=== PATIENT | female | born 1950 | race Caucasian/White ===

== ENCOUNTER 2024-10-27 17:36 | Inpatient (IN) | payer MEDICARE, SELFPAY ==
[2024-10-27] VITALS (54 sets, daily range): BP systolic 91–136; BP diastolic 38–75; PULSE 76–105; RESP 9–28; TEMP 36.8–37.7; O2SAT 88–97
--- NOTE | 2024-10-27 17:45 | DI.CT_ITS ---
Exam(s) CT HEAD CERVICAL SPINE WO EXAM: CT HEAD CERVICAL SPINE WO CLINICAL HISTORY: head trauma and neck pain 3 days ago. TECHNIQUE: Imaging Protocol: Axial computed tomography images with coronal and sagittal reformatted images were created and reviewed COMPARISON: No exams were available for comparison FINDINGS: There is artifact in the posterior fossa limiting evaluation of this area. CT Head: Ventricles and Extra axial spaces: Normal in size and morphology for the patient's age. Hemorrhage: None. Cerebral parenchyma: There are areas of decreased attenuation in the white matter consistent with chr onic microvascular ischemic disease. No acute territorial infarct is seen. Midline shift: None. Brainstem/Cerebellum: Normal. Calvarium: Normal. Visualized Paranasal sinuses/Mastoids: Clear. Soft Tissues: Unremarkable. CT Cervical Spine: Bones: No acute fracture or subluxation. Age-appropriate degenerative changes are present. Soft Tissues: Unremarkable. Lung Apices: Clear. IMPRESSION: 1. No acute intracranial process. 2. No acute fracture or subluxation in the cervical spine. 3. The preliminary [facility] report was reviewed. RADIATION DOSE DELIVERED: 1,491.68mGy.cm Total DLP DATA REPOSITORY: All CT scans at this facility are submitted to the National Radiology Data Registry (NRDR) Dose Index Registry (DIR) with the [employer] ([employer]). RADIATION OPTIMIZATION: All CT scans at this facility use at least one of these dose optimization te chniques: automated exposure control; mA and/or kV adjustment per patient size (includes targeted exa ms where dose is matched to clinical indication); or iterative reconstruction.
--- NOTE | 2024-10-27 17:45 | RT.EKG_ITS ---
APPROVED REPORT Exam: Resting ECG Reason for Exam: weakness, dizzy Patient Location: E HR:94 bpm ECG Measurements Heart Rate 94 AXIS PA 159 P 31 QRSd 93 QRS 9 QT 371 T 43 QTc 465 Conclusion Sinus rhythm, rate 94 No interval abnormalities No STEMI No priors available for comparison
--- NOTE | 2024-10-27 17:56 | DI.RAD_ITS ---
Exam(s) XR CHEST 1V IN DI DEPT EXAM: XR CHEST 1V IN DI DEPT CLINICAL HISTORY: SOB, diaphoresis TECHNIQUE: 2D digital imaging was performed of the chest. One image was obtained. An AP view was ob tained. COMPARISON: No exams were available for comparison FINDINGS: MEDIASTINUM: Normal. HEART: Normal. PULMONARY VASCULATURE: Normal. LUNGS: No focal consolidating infiltrates are seen. PLEURAL SPACE: No pleural effusion or pneumothorax. BONE:Within normal limits for the patient's age. OTHER FINDINGS:Normal. IMPRESSION: 1. No focal consolidating infiltrate or pleural effusion. 2. The preliminary [facility] report was reviewed. DATA REPOSITORY: RADIATION DOSE DELIVERED:
--- NOTE | 2024-10-27 18:02 | ED.GENADUL_ITS ---
Discharge Plan Disposition Patient Disposition: Transfer-Acute Inpatient Care Specific Acute Inpt Facility: [facility] Discharge Details Chief Complaint: Nausea/Vomit/Diar Clinical Impression: NSTEMI, initial episode of care Admit Date/Time: 10/27/24 21:33 Admit Provider: Jerson Weathers Attending Provider: Jerson Weathers Primary Care Provider: Unknown,Unknown ED Provider: Sandie Valdez Discharge Data Discharge Date/Time-TO BE ENTERED AT DEPARTURE: 10/27/24 22:23 HPI General Date/Time Provider Initiated Documentation: 10/27/24 17:40 . HPI Narrative: Roxanna is a 74 year old female who presents to the emergency department today for evaluation of not feeling well. She reports that she fell 3 days ago (), landing headfirst as she tumbled down a hill. She has had some neck pain, right sided headache, and feeling of unsteadiness on her feet since then. Denies LOC with fall or extremity injuries. 2 days ago she felt fatigued all day with mild chills. Yesterday around 2:30 PM she had 1/2-hour episode of panicky breathing with nausea/vomiting x 1, and profuse sweating; denies associated chest pain. This resolved spontaneously without intervention. Today she had another episode starting around 4:30 PM with more vomiting, currently is sweating, but says that her panicky breathing improved with relaxation techniques. Denies recorded fevers, vision changes, chest pain, congestion/sore throat/cough, abdominal pain, change in p.o. intake, change in bowel or bladder function, black/tarry stools, new easy bruising/gum bleeding/epistaxis. She has not anticoagulated. Past medical history is significant for HTN, HLD, prediabetes (lasst A1C 6.1 per ). Denies history of smoking, cardiac disease, bleeding disorders, CVA, or SD. Physical exam remarkable for uncomfortable appearing diaphoretic patient who is alert and oriented, appropriately answering questions. She has ecchymosis around her left eye and left side of forehead. No Gregory sign. No C-spine step-off/sinus/deformity. Easy work of breathing, lung sounds clear bilaterally. Normal heart sounds. Abdomen soft, nondistended, nontender to palpation. Large ecchymosis noted on left bailon attributed to recent fall. No pedal edema. Moving all extremities equally, radial pulses equal bilaterally. D/dx includes but is not limited to: Intracranial hemorrhage, other head injury/concussion, ACS, viral illness such as COVID-19 or flu, gastritis, pancreatitis, electrolyte imbalance, severe anemia I independently interpreted the following tests: EKG performed, normal sinus rhythm, rate 94, normal intervals. No changes consistent with acute ischemia. Serial Troponins elevated, 158-> 185 -> 206. CBC, CMP, lipase all reassuring. COVID/flu negative. No obvious infiltrate noted on chest x-ray CT head/C-spine performed, heparin administered after head CT determined to have no evidence of intracranial hemorrhage. This was confirmed by radiologist; no acute findings noted. C-collar was removed after negative C-spine CT; patient denies neck pain, extremity weakness; has full painless range of motion of neck. History and presentation consistent with NSTEMI and mild concussion secondary to head trauma While in the emergency department, Roxanna received 324 mg aspirin and heparin initiated for NSTEMI. 2 mg morphine given for headache; patient reports full improvement of symptoms after receiving morphine. Patient did have some dipping down and O2 sat while laying flat (88-90% on RA), this improved with 0.5 L O2 via NC with O2 sat in mid 90s-after patient sat up she no longer required supplemental oxygen. Discussed case with Dr. Ruffin, [facility] sugar drier. Recommends repeat troponin and EKG at 6 hours. As patient does not actively have chest pain, hold off on Plavix for now. Patient accepted for transfer to [facility] under the care of Dr Villareal, sugar drier; [facility] floor. As patient will be held overnight, discussed case with Dr. Weathers, hospitalist. She will be observed overnight in ICU pending transfer. Related Data Home Medications ?Medication ?Instructions ?Recorded ?Confirmed Centrum Tablet 1 tab PO DAILY 10/10/12 calcium ER 600 mg (as carb,cit)-D3 1 tab PO DAILY 10/10/12 12.5 mcg (500 unit) tablet, ext.rel hydroxychloroquine 200 mg tablet 1 tab PO BID #180 tab-caps 10/10/12 (Plaquenil) omega-3 fatty acids-fish oil 300 1 cap PO DAILY 10/10/12 mg-1,000 mg capsule ranitidine HCl 75 mg tablet 1 tab PO DAILY 10/10/12 (Zantac) triamcinolone acetonide 0.5 % 1 dara topical DAILY PRN ##3 10/10/12 topical cream atenolol 25 mg tablet 1 tab PO DAILY #90 tab-caps 09/02/13 escitalopram oxalate 10 mg tablet 1 tab PO DAILY #90 tab-caps 09/02/13 (Lexapro) hydrochlorothiazide 12.5 mg tablet 1 tab PO DAILY #90 tab-caps 09/02/13 tolterodine 4 mg capsule,extended 1 cap PO DAILY #90 tab-caps 12/18/13 release 24 hr (Detrol LA) Allergies Allergy/AdvReac Type Severity Reaction Status Date / Time codeine Allergy Intermediate NAUSEA Unverified 11/25/13 13:52 aspirin AdvReac Mild BRUISE Unverified 11/25/13 13:52 EASILY General Stated Complaint: Nausea/Vomit/Diar BASSAM: 3 Review of Systems Narrative: See HPI Exam Const General: cooperative and diaphoretic Nutritional Appearance: overweight Orientation: alert and oriented x3 HENMT Head: no Gregory's sign, no hematomas, no raccoon eyes and periorbital ecchymosis (L eye) Ears: hearing grossly normal bilaterally General nose exam: external nose normal Face and sinus: ecchymosis on the left forehead Mouth: oral mucosae normal Throat: posterior oropharynx normal Neck Neck: normal visual inspection and full ROM Resp Effort & Inspection: normal respiratory effort and able to speak in complete sentences Auscultation: clear to auscultation bilaterally Cardio Jugular venous pressure: no JVD Rate: regular rate Rhythm: regular rhythm Pulses: radial pulses present GI Inspection: normal to inspection and non-distended Palpation: soft, not firm, no guarding, not rigid and nontender Back/Spine/Pelvis Cervical Spine: normal cervical lordosis, cervical ROM normal and collar present (upon arrival, cleared after CT and re-evaluation) Thoracic/Lumbar Spine: thoracic and lumbar spine normal to inspection Skin General skin exam: no rashes or lesions noted Neuro General: patient alert, patient oriented x3, tone normal, moves all extremities and no focal motor deficits Course Vital Signs Vital signs: Vital Signs Temperature 37.7 C H 10/27/24 17:41 Pulse 100 H 10/27/24 17:41 Respiratory Rate 18 05/11/25 17:41 Blood Pressure 124/75 10/27/24 17:41 Pulse Oximetry 93 10/27/24 17:41 Temperature 37.7 C H 10/27/24 17:41 Temperature Source Oral 10/27/24 17:41 Pulse 100 H 10/27/24 17:41 Respiratory Rate 18 10/27/24 17:41 Blood Pressure 124/75 10/27/24 17:41 Pulse Oximetry 93 10/27/24 17:41 Medical Decision Making Imaging Data Radiologic Study: Radiologist's impression: PROCEDURE INFORMATION: Exam: XR Chest Exam date and time: 10/27/2024 6:33 PM Age: 74 years old Clinical indication: Shortness of breath; Diaphoresis, SOB TECHNIQUE: Imaging protocol: Radiologic exam of the chest. Views: 1 view. COMPARISON: CT HEAD CERVICAL SPINE WO 10/27/2024 6:19 PM FINDINGS: Limitations: Patient positioning is lordotic. Lungs: No pulmonary consolidation is seen. There is mild hazy indistinctness of the pulmonary vascular margins. Pleural spaces: No pleural effusion or pneumothorax is demonstrated. Heart/Mediastinum: The heart is normal in size. There is atherosclerotic calcification at the apex of the aortic arch. Bones/joints: There is prominent degenerative change of the shoulder joints bilaterally. IMPRESSION: 1. Mild hazy indistinctness of the pulmonary vascular margins. Although possibly artifactual, this appearance can be seen with interstitial pulmonary edema. Clinical correlation is recommended. 2. No focal pulmonary consolidation or pleural effusion demonstrated. Radiologic Study #2: Radiologist's impression: PROCEDURE INFORMATION: Exam: CT Head Without Contrast Exam date and time: 10/27/2024 6:19 PM Age: 74 years old Clinical indication: Injury or trauma; Blunt trauma (contusions or hematomas); Consciousness not specified; Injury date: 10/25/24; Injury details: Fall, three days ago, head and neck pain TECHNIQUE: Imaging protocol: Computed tomography of the head without contrast. Radiation optimization: All CT scans at this facility use at least one of these dose optimization techniques: automated exposure control; mA and/or kV adjustment per patient size (includes targeted exams where dose is matched to clinical indication); or iterative reconstruction. COMPARISON: No relevant prior studies available. FINDINGS: Brain: Cerebral sulci show bilateral symmetry with no supratentorial mass or mass effect detected. Brainstem and cerebellum are unremarkable. There is no evidence of acute transcortical infarction or recent intracranial hemorrhage. Cerebral ventricles: Ventricular and cisternal spaces are normal in size and configuration and there is no midline shift or hydrocephalus seen. Paranasal sinuses: Grossly clear throughout. Mastoid air c ells: Grossly clear bilaterally. Bones: Bony calvarium and skull base are intact and no acute fractures are detected. Soft tissues: Unremarkable. IMPRESSION: No evidence of acute transcortical infarction, recent intracranial hemorrhage or hydrocephalus. No acute intracranial process is detected. PROCEDURE INFORMATION: Exam: CT Cervical Spine Without Contrast Exam date and time: 10/27/2024 6:19 PM Age: 74 years old Clinical indication: Injury or trauma; Blunt trauma (contusions or hematomas); Consciousness not specified; Injury date: 10/25/24; Injury details: Fall, three days ago, head and neck pain TECHNIQUE: Imaging protocol: Computed tomography of the cervical spine without contrast. Radiation optimization: All CT scans at this facility use at least one of these dose optimization techniques: automated exposure control; mA and/or kV adjustment per patient size (includes targeted exams where dose is matched to clinical indication); or iterative reconstruction. COMPARISON: No relevant prior studies available. FINDINGS: Bones: There is arthrosis involving the anterior atlantodental interval with loss of joint space and marginal osteophyte formation and the odontoid process is grossly intact. There is gross preservation of vertebral body height throughout cervical levels with no vertebral body fractures or significant subluxations detected. Changes of facet arthropathy are most advanced on the right at upper cervical levels with no acute fractures detected involving the posterior elements of the cervical spine. Discs/Spinal canal/Neural foramina: Loss of disc space height with posterior osteocartilaginous ridging is most significant at C5-C6 and C6-C7 resulting in canal narrowing and possible mass-effect upon the ventral cord which could be better evaluated with MRI. Uncovertebral and facet changes produce suspected bilateral foraminal distortions at C5-C6 and C6-C7. Lungs: No pneumothorax or consolidation detected at the lung apices. Soft tissues: Unremarkable. IMPRESS ION: Cervical spondylosis with central canal and foraminal narrowing as above. No acute cervical fractures are detected. Thank you for allowing us to participate in the care of your patient Quality:SDOH Health Related Social Needs: No Data to Display Critical Care Time Critical Care Time Attestation: I have personally spent 30 minutes of critical care time, exclusive of time spent on any procedures, in evaluation and management of this critically ill patient?s condition of NSTEMI. I provided the following critical care treatment: Lab interpretation, frequent reassessments, cardiac monitoring/oxygen saturation monitoring, consult with cardiology [facility] All Active Problems (Updated 10/28/24 @ 00:22 by Sandie Walters) Depression (Chronic) Hyperactivity of bladder (Chronic) HTN (hypertension) (Chronic) NSTEMI, initial episode of care (Acute) Surgical History Abdominal hysterectomy Cholecystectomy Arthroplasty of knee Family History Mother Personal history of malignant neoplasm Father Essential hypertension Sister No problems noted. Brother Essential hypertension Grandfather No problems noted. Grandfather No problems noted. Grandmother Personal history of malignant neoplasm Grandmother No problems noted. Social History Smoking/Tobacco Use Status: Never Smoking risk assessment performed?: Yes Substance use type: does not use Housing: house
[2024-10-27 18:05] LABS: Abs Immature Grans 0.05 10^3/uL (0.0-0.06); Absolute Basophil Count 0.04 10^3/uL (0.0-0.2); Absolute Eosinophil Count 0.06 10^3/uL (0.0-0.7); Absolute Monocyte Count 0.47 10^3/uL (0.1-0.8); Basophils % 0.4 %; Eosinophils % 0.6 %; HCT 32.7 % (36.0-46.0); HGB 10.8 g/dL (11.2-15.7); Immature Grans % 0.5 %; Lymphocytes % 4.7 %; MCH 27.8 pg (27.0-33.0); MCV 84 fL (80-95); MPV 9.4 fL (8.0-11.0); Monocytes % 4.4 %; Neutrophils % 89.4 %; Platelet Count 148 10^3/uL (130-400); RBC 3.88 10^6/uL (3.93-5.22); RDW 13.1 % (11.7-14.6); WBC 10.72 10^3/uL (4.4-10.8)
[2024-10-27 18:18] LABS: Prothrombin Time 10.1 sec (9.1-11.1)
[2024-10-27] MEDS: Ondansetron 4 MG/2 ML VIAL IVP (18:19)
[2024-10-27 18:25] LABS: ALT 61 U/L (14-59); AST 43 U/L (15-37); Albumin 3.6 g/dL (3.4-5.0); Alkaline Phosphatase 117 U/L (46-116); Anion Gap 10.4 mmol/L (3-11); BUN 27 mg/dL (7-18); CO2 21.6 mmol/L (21.0-32.0); CREATININE 1.1 mg/dL (0.55-1.02); Chloride 103 mmol/L (98-107); Estimated GFR 52.08 (mL/min/1.73m2); Glucose 189 mg/dL (74-106); Lipase 34 U/L (<78); Magnesium 1.7 mg/dL (1.8-2.4); Potassium 3.7 mmol/L (3.5-5.1); Sodium 135 mmol/L (136-145); Total Protein 6.9 g/dL (6.4-8.2)
[2024-10-27 18:39] LABS: Troponin I 158 ng/L (<or=51)
--- NOTE | 2024-10-27 18:58 | DI.[facility]_ITS ---
PROCEDURE INFORMATION: Exam: CT Head Without Contrast Exam date and time: 10/27/2024 6:19 PM Age: 74 years old Clinical indication: Injury or trauma; Blunt trauma (contusions or hematomas); Consciousness not specified; Injury date: 10/25/24; Injury details: Fall, three days ago, head and neck pain TECHNIQUE: Imaging protocol: Computed tomography of the head without contrast. Radiation optimization: All CT scans at this facility use at least one of these dose optimization techniques: automated exposure control; mA and/or kV adjustment per patient size (includes targeted exams where dose is matched to clinical indication); or iterative reconstruction. COMPARISON: No relevant prior studies available. FINDINGS: Brain: Cerebral sulci show bilateral symmetry with no supratentorial mass or mass effect detected. Brainstem and cerebellum are unremarkable. There is no evidence of acute transcortical infarction or recent intracranial hemorrhage. Cerebral ventricles: Ventricular and cisternal spaces are normal in size and configuration and there is no midline shift or hydrocephalus seen. Paranasal sinuses: Grossly clear throughout. Mastoid air cells: Grossly clear bilaterally. Bones: Bony calvarium and skull base are intact and no acute fractures are detected. Soft tissues: Unremarkable. IMPRESSION: No evidence of acute transcortical infarction, recent intracranial hemorrhage or hydrocephalus. No acute intracranial process is detected. PROCEDURE INFORMATION: Exam: CT Cervical Spine Without Contrast Exam date and time: 10/27/2024 6:19 PM Age: 74 years old Clinical indication: Injury or trauma; Blunt trauma (contusions or hematomas); Consciousness not specified; Injury date: 10/25/24; Injury details: Fall, three days ago, head and neck pain TECHNIQUE: Imaging protocol: Computed tomography of the cervical spine without contrast. Radiation optimization: All CT scans at this facility use at least one of these dose optimization techniques: automated exposure control; mA and/or kV adjustment per patient size (includes targeted exams where dose is matched to clinical indication); or iterative reconstruction. COMPARISON: No relevant prior studies available. FINDINGS: Bones: There is arthrosis involving the anterior atlantodental interval with loss of joint space and marginal osteophyte formation and the odontoid process is grossly intact. There is gross preservation of vertebral body height throughout cervical levels with no vertebral body fractures or significant subluxations detected. Changes of facet arthropathy are most advanced on the right at upper cervical levels with no acute fractures detected involving the posterior elements of the cervical spine. Discs/Spinal canal/Neural foramina: Loss of disc space height with posterior osteocartilaginous ridging is most significant at C5-C6 and C6-C7 resulting in canal narrowing and possible mass-effect upon the ventral cord which could be better evaluated with MRI. Uncovertebral and facet changes produce suspected bilateral foraminal distortions at C5-C6 and C6-C7. Lungs: No pneumothorax or consolidation detected at the lung apices. Soft tissues: Unremarkable. IMPRESSION: Cervical spondylosis with central canal and foraminal narrowing as above. No acute cervical fractures are detected. Dictated and Authenticated by: Jovany Maxwell MD. Orderin Maryellen Hooper MD
[2024-10-27] MEDS: Heparin in 0.45% NaCl 25,000 UNIT/250 ML BAG 10 UNIT IVINF (19:01)
[2024-10-27] MEDS: Aspirin 81 MG CHEW 324 MG CH (19:01)
[2024-10-27] MEDS: MORPHine 4 MG/ML SYR IVP (19:02)
--- NOTE | 2024-10-27 19:27 | DI.[facility]_ITS ---
PROCEDURE INFORMATION: Exam: XR Chest Exam date and time: 10/27/2024 6:33 PM Age: 74 years old Clinical indication: Shortness of breath; Diaphoresis, SOB TECHNIQUE: Imaging protocol: Radiologic exam of the chest. Views: 1 view. COMPARISON: CT HEAD CERVICAL SPINE WO 10/27/2024 6:19 PM FINDINGS: Limitations: Patient positioning is lordotic. Lungs: No pulmonary consolidation is seen. There is mild hazy indistinctness of the pulmonary vascular margins. Pleural spaces: No pleural effusion or pneumothorax is demonstrated. Heart/Mediastinum: The heart is normal in size. There is atherosclerotic calcification at the apex of the aortic arch. Bones/joints: There is prominent degenerative change of the shoulder joints bilaterally. IMPRESSION: 1. Mild hazy indistinctness of the pulmonary vascular margins. Although possibly artifactual, this appearance can be seen with interstitial pulmonary edema. Clinical correlation is recommended. 2. No focal pulmonary consolidation or pleural effusion demonstrated. Dictated and Authenticated by: Israel Motley MD. Orderin Maryellen Hooper MD
[2024-10-27 19:40] LABS: Troponin I 185 ng/L (<or=51)
--- NOTE | 2024-10-27 21:06 | HPE_ITS ---
Date of service: 10/27/24 Time of Service: 21:06 Assessment and Plan Assessment and plan (1) NSTEMI, initial episode of care: Start date: 10/27/24 Status: Acute Assessment and plan: This is a 74-year-old lady who had a fall 3 days prior to admission with some stuttering symptoms of chills and episodes of headache with nausea and vomiting. The day of presentation she had increased shortness of breath with exertion working around the house. She did have a headache 2 days prior to admission after her fall and some nausea and vomiting episodes intermittently with her headache. She was seen in the ED with imaging of her head which was negative for any acute bleed but she did have a positive troponin which was trending up to the last measurement in the evening. This is being repeated this morning. She was given a full dose aspirin and placed on heparin infusion and [facility] cardiology was consulted with acceptance pending bed for transfer. He has been admitted for non-STEMI with cardiac monitoring and will continue to trend troponins. She is not having chest pain. she is not having shortness of breath at rest. She does wear BiPAP at night. She is a full code. (2) Concussion: Start date: 10/27/24 Status: Acute Assessment and plan: Patient was having headaches and mild concussion symptoms after her fall with negative CT of the head other than cervical arthritis. She does have Plaquenil chronically for PMR but does not have a diagnosis of lupus. Continue monitoring neurological symptoms with patient appearing to clear. She does not have a headache presently. (3) Fever: Start date: 10/28/24 Status: Acute Assessment and plan: Patient had chills for 2 days prior to admission and did have a fever the morning after admission. Blood cultures and urine were obtained and tickborne disease panel was ordered. Antibiotics will be initiated if appropriate. She did have a slightly elevated WBC after a normal WBC and slight elevation of her liver function test and we need to think of tickborne disease. She does work outside. (4) Hypomagnesemia: Start date: 10/27/24 Status: Acute Assessment and plan: Replete and trend labs. (5) PMR (polymyalgia rheumatica): Status: Chronic Assessment and plan: Patient has been on Plaquenil for years which we continued. (6) HTN (hypertension): Status: Chronic Assessment and plan: Monitor and continue outpatient medical regimen adjusting as needed. She does have a low magnesium but normal potassium and on hydrochlorothiazide without potassium supplementation chronically. (7) Hyperactivity of bladder: Status: Chronic Assessment and plan: Continue outpatient medical regimen. (8) Depression: Status: Chronic Assessment and plan: Continue outpatient medical regimen. (9) CARLY (obstructive sleep apnea): Status: Chronic Assessment and plan: Continue home BiPAP settings. History of Present Illness History of Present Illness Chief Complaint: Recent fall, chills and dyspnea with exertion Narrative: This is a 74-year-old female patient who was helping her with a concrete form at their house where they are building an extension over and onto her left side having a bruise over her left head and the eye as well as a bruise over her left knee. This happened 3 days prior to presentation to the ED. She had some chills 2 nights prior to presentation then again the day of presentation with headache and associated nausea and vomiting. The symptoms were intermittent. The day of presentation the patient was having dyspnea with exertion was of left shoulder pain but no chest pain no chest pressure. She denied palpitations. He was having normal bowel movements and she did not measure any fever with her chills. She presents to the ED because of her exertional dyspnea and persistence of symptoms intermittently since her fall. In the ED she was found to have a slightly elevated creatinine from her baseline and she did not receive IV fluids because of concerns of vascular congestion on chest x-ray. She also had slightly increased liver functions with a normal total bilirubin and normal PT/INR. Her EKG had no acute ischemic changes but she did have an elevated troponin which was trending up from 158-185 and then 206 with the last measurement downward at 132. Patient was placed on heparin infusion in the ED after consultation with [facility]. [facility] did accept the patient for transfer with Dr. Augustin ash. She is a full code. Early in the morning after admission the patient did have a fever up to 39.5 and her flu/COVID/RSV had been negative upon admission with a normal WBC upon admission but this slightly elevated with repeat lab in the morning. Blood cultures x 2 were performed and repeat chest x-ray PA and lateral was ordered with patient having slight crackles on her left lung hewitt upon admission. Initial chest x-ray was portable and did not show any infiltrate but possible vascular congestion. This should be followed up with treatment if patient is manifest pulmonary infiltrates at this time and urinalysis should be checked as possible source as well if she is not having symptoms. Patient is chronically on Plaquenil because of the severe case of PMR when she was younger, in her 20s at this has never been stopped. Review of Systems Narrative: 13 point review of systems otherwise unrevealing or stable. 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 She denies any weight gain or edema. She has had no cough, urinary symptoms or other GI symptoms. PFSH All Active Problems (Updated 10/28/24 @ 07:13 by Jerson Weathers) CARLY (obstructive sleep apnea) (Chronic) PMR (polymyalgia rheumatica) (Chronic) Fever (Acute) Hypomagnesemia (Acute) Concussion (Acute) Depression (Chronic) Hyperactivity of bladder (Chronic) HTN (hypertension) (Chronic) NSTEMI, initial episode of care (Acute) Surgical History Abdominal hysterectomy Cholecystectomy Arthroplasty of knee Family History Mother Personal history of malignant neoplasm Father Essential hypertension Sister No problems noted. Brother Essential hypertension Grandfather No problems noted. Grandfather No problems noted. Grandmother Personal history of malignant neoplasm Grandmother No problems noted. Social History Smoking/Tobacco Use Status: Never Smoking risk assessment performed?: Yes Substance use type: does not use Housing: house Meds Allergies and Home Medications Allergies Allergy/AdvReac Type Severity Reaction Status Date / Time codeine Allergy Intermediate NAUSEA Unverified 11/25/13 13:52 aspirin AdvReac Mild BRUISE Unverified 11/25/13 13:52 EASILY Home Medications ?Medication ?Instructions ?Recorded ?Confirmed ?Type Centrum Tablet 1 tab PO DAILY 10/10/12 History calcium ER 600 mg (as carb,cit)-D3 1 tab PO DAILY 10/10/12 History 12.5 mcg (500 unit) tablet, ext.rel hydroxychloroquine 200 mg tablet 1 tab PO BID #180 tab-caps 10/10/12 History (Plaquenil) omega-3 fatty acids-fish oil 300 1 cap PO DAILY 10/10/12 History mg-1,000 mg capsule ranitidine HCl 75 mg tablet 1 tab PO DAILY 10/10/12 History (Zantac) triamcinolone acetonide 0.5 % 1 dara topical DAILY PRN ##3 10/10/12 History topical cream atenolol 25 mg tablet 1 tab PO DAILY #90 tab-caps 09/02/13 History escitalopram oxalate 10 mg tablet 1 tab PO DAILY #90 tab-caps 09/02/13 History (Lexapro) hydrochlorothiazide 12.5 mg tablet 1 tab PO DAILY #90 tab-caps 09/02/13 History tolterodine 4 mg capsule,extended 1 cap PO DAILY #90 tab-caps 12/18/13 History release 24 hr ([facility] [place]) Exam Narrative Exam Narrative: General: Patient appears appropriate for age, alert and oriented x 3 and in no acute distress. HEENT: Normocephalic, traumatized face with left facial ecchymosis under eye and linear ecchymotic areas over left face, eyes with pupils equal and react to light symmetrically, extraocular movement intact and sclera anicteric. Oropharynx with moist mucosa and fair dentition. Neck: Supple without JVD. Some decreased range of motion and discomfort with range of motion. Back: Kyphotic without CVA tenderness. Lungs: Auscultated coarse crackles left hemithorax compared to right with bronchovesicular breath sounds diffusely, no focalizing rales or rhonchi. No expiratory wheeze. Breast: Exam deferred. Heart: Regular rate and rhythm with no murmurs gallops appreciated. Abdomen: Obese contour, soft and nontender to palpation with no palpable hepatosplenomegaly. Bowel sounds positive all quadrants. Genitalia/rectal: Exam deferred. Extremities: Without clubbing, cyanosis or pitting edema with patient. Have nonpitting edema ankles and feet. Good capillary refill. Skin: Normal color, warm and dry. Ecchymotic areas over extensor surface of left knee and lower face with left black eye and linear markings over left face. Neuro: Cranial nerves II through XII gross intact, no focalized motor deficits. No tremor. Psych: Normal affect and mood. No abnormal thought processes. Remote and recent memory intact. Results Imaging Imaging Studies: Exam: CT Head Without Contrast Exam date and time: 10/27/2024 6:19 PM Age: 74 years old Clinical indication: Injury or trauma; Blunt trauma (contusions or hematomas); Consciousness not specified; Injury date: 10/25/24; Injury details: Fall, three days ago, head and neck pain . COMPARISON: No relevant prior studies available. FINDINGS: Brain: Cerebral sulci show bilateral symmetry with no supratentorial mass or mass effect detected. Brainstem and cerebellum are unremarkable. There is no evidence of acute transcortical infarction or recent intracranial hemorrhage. Cerebral ventricles: Ventricular and cisternal spaces are normal in size and configuration and there is no midline shift or hydrocephalus seen. Paranasal sinuses: Grossly clear throughout. Mastoid air cells: Grossly clear bilaterally. Bones: Bony calvarium and skull base are intact and no acute fractures are detected. Soft tissues: Unremarkable. IMPRESSION: No evidence of acute transcortical infarction, recent intracranial hemorrhage or hydrocephalus. No acute intracranial process is detected. PROCEDURE INFORMATION: Exam: CT Cervical Spine Without Contrast Exam date and time: 10/27/2024 6:19 PM Age: 74 years old Clinical indication: Injury or trauma; Blunt trauma (contusions or hematomas); Consciousness not specified; Injury date: 10/25/24; Injury details: Fall, three days ago, head and neck pain COMPARISON: No relevant prior studies available. FINDINGS: Bones: There is arthrosis involving the anterior atlantodental interval with loss of joint space and marginal osteophyte formation and the odontoid process is grossly intact. There is gross preservation of vertebral body height throughout cervical levels with no vertebral body fractures or significant subluxations detected. Changes of facet arthropathy are most advanced on the right at upper cervical levels with no acute fractures detected involving the posterior elements of the cervical spine. Discs/Spinal canal/Neural foramina: Loss of disc space height with posterior osteocartilaginous ridging is most significant at C5-C6 and C6-C7 resulting in canal narrowing and possible mass-effect upon the ventral cord which could be better evaluated with MRI. Uncovertebral and facet changes produce suspected bilateral foraminal distortions at C5-C6 and C6-C7. Lungs: No pneumothorax or consolidation detected at the lung apices. Soft tissues: Unremarkable. IMPRESSION: Cervical spondylosis with central canal and foraminal narrowing as above. No acute cervical fractures are detected. Exam: XR Chest Exam date and time: 10/27/2024 6:33 PM Age: 74 years old Clinical indication: Shortness of breath; Diaphoresis, SOB COMPARISON: CT HEAD CERVICAL SPINE WO 10/27/2024 6:19 PM FINDINGS: Limitations: Patient positioning is lordotic. Lungs: No pulmonary consolidation is seen. There is mild hazy indistinctness of the pulmonary vascular margins. Pleural spaces: No pleural effusion or pneumothorax is demonstrated. Heart/Mediastinum: The heart is normal in size. There is atherosclerotic calcification at the apex of the aortic arch. Bones/joints: There is prominent degenerative change of the shoulder joints bilaterally. IMPRESSION: 1. Mild hazy indistinctness of the pulmonary vascular margins. Although possibly artifactual, this appearance can be seen with interstitial pulmonary edema. Clinical correlation is recommended. 2. No focal pulmonary consolidation or pleural effusion demonstrated. Labs 10/28/24 05:45 10/27/24 17:51 Labs: Laboratory Results - last 24 hr 10/27/24 10/27/24 10/27/24 17:51 19:07 20:21 WBC 10.72 RBC 3.88 L Hgb 10.8 L Hct 32.7 L MCV 84 MCH 27.8 MCHC 33.0 RDW 13.1 Plt Count 148 MPV 9.4 Immature Gran % 0.5 Neutrophils % 89.4 Lymphocytes % 4.7 Monocytes % 4.4 Eosinophils % 0.6 Basophils % 0.4 Nucleated RBC % 0.0 Absolute Neutrophils 9.60 H Absolute Lymphocytes 0.50 L Absolute Monocytes 0.47 Absolute Eosinophils 0.06 Absolute Basophils 0.04 PT 10.1 INR 1.0 APTT 23.0 Sodium 135 L Potassium 3.7 Chloride 103 Carbon Dioxide 21.6 Anion Gap 10.4 BUN 27 H Creatinine 1.1 H Est GFR (CKD-EPI 2020) 52.08 Glucose 189 H Calcium 9.0 Magnesium 1.7 L Total Bilirubin 1.0 AST 43 H ALT 61 H Alkaline Phosphatase 117 H Troponin I 158 H* 185 H* Cancelled Total Protein 6.9 Albumin 3.6 Lipase 34 Last Vital Signs Temp 37.7 C H 10/27/24 17:41 Pulse 94 H 10/27/24 19:32 Resp 22 10/27/24 19:32 BP 115/49 L 10/27/24 19:31 Pulse Ox 93 10/27/24 19:32 Time Spent Time spent with Patient: >75 minutes Time was spent: preparing to see the patient(eg.review tests), obtaining and/or reviewing separately otained hiistory, ordering medications,tests, procedures, indepentently interpreting results, counseling the patient and care coordination
[2024-10-27 21:29] LABS: COVID-19 PCR Negative (Negative); Influenza A PCR Negative (Negative); Influenza B PCR Negative (Negative); RSV PCR Negative (Negative)
[2024-10-27 21:31] LABS: Source Nasopharynx
[2024-10-27 21:35] LABS: Troponin I 206 ng/L (<or=51)
[2024-10-27] MEDS: Atorvastatin 40 MG TAB 80 MG PO (23:59)
[2024-10-27] MEDS: Normal Saline Flush 10 ML SYR IVP (23:59)
[2024-10-28] VITALS (44 sets, daily range): BP systolic 100–126; BP diastolic 56–57; PULSE 69–93; RESP 8–29; TEMP 36.5–39.7; O2SAT 90–98
--- NOTE | 2024-10-28 | DI.RAD_ITS ---
Exam(s) XR CHEST 2V PA LATERAL EXAM: XR CHEST 2V PA LATERAL CLINICAL HISTORY: Fever with left lung crackles TECHNIQUE: 2D digital imaging was performed of the chest. Two images were obtained. PA and lateral views were obtained. COMPARISON: CR,XR XR CHEST 1V IN DI DEPT from 10/27/2024 FINDINGS: MEDIASTINUM: Normal. HEART: Normal. PULMONARY VASCULATURE: Normal. LUNGS: There appear to be faint increased lung markings in the left base compared to the prior examin ation from 10/27/2024. The right lung remains clear. PLEURAL SPACE: No pleural effusion or pneumothorax. BONE:Within normal limits for the patient's age. OTHER FINDINGS:There are surgical clips seen in the right upper quadrant of the abdomen. IMPRESSION: Question of a developing infiltrate in the left lung base. DATA REPOSITORY: RADIATION DOSE DELIVERED:
[2024-10-28 00:29] LABS: Troponin I 132 ng/L (<or=51)
[2024-10-28 00:33] LABS: TSH (W/Ref FT4) 1.61 uIU/mL (0.36-3.74)
[2024-10-28 01:30] LABS: PTT Activated 37.2 sec (20.6-30.2)
[2024-10-28] MEDS: MAGNESIUM SULFATE 2 GM/50 ML BAG IV_INF (01:32)
[2024-10-28] MEDS: Acetaminophen 325 MG TAB PO ×2 (06:32→16:09)
[2024-10-28 06:37] LABS: Abs Immature Grans 0.08 10^3/uL (0.0-0.06); Absolute Basophil Count 0.07 10^3/uL (0.0-0.2); Absolute Lymphocyte Count 0.63 10^3/uL (1.2-3.4); Absolute Monocyte Count 0.85 10^3/uL (0.1-0.8); Absolute Neutrophil Count 10.46 10^3/uL (1.2-6.7); Basophils % 0.6 %; Eosinophils % 0.2 %; HCT 32.3 % (36.0-46.0); HGB 10.5 g/dL (11.2-15.7); Immature Grans % 0.7 %; Lymphocytes % 5.2 %; MCH 28.1 pg (27.0-33.0); MCHC 32.5 % (32.0-36.0); MCV 86 fL (80-95); MPV 9.7 fL (8.0-11.0); Neutrophils % 86.3 %; Platelet Count 141 10^3/uL (130-400); RBC 3.74 10^6/uL (3.93-5.22); RDW 13.2 % (11.7-14.6); RDW-SD 41.4 fL; WBC 12.12 10^3/uL (4.4-10.8)
[2024-10-28 06:38] LABS: Absolute Eosinophil Count 0.02 10^3/uL (0.0-0.7)
[2024-10-28 06:54] LABS: Magnesium 2.5 mg/dL (1.8-2.4)
[2024-10-28 07:19] LABS: Troponin I 91 ng/L (<or=51)
--- NOTE | 2024-10-28 07:45 | W.PC.ACHO ---
Registration Status: Primary Language: Preferred Language: ED Information & Data Chief Complaint Nausea/Vomit/Diar 10/27/24 18:08 Triage Note Patient complaining of 10/27/24 17:41 chills, weakness and vomiting of 1 day. Patient did fall 3 days ago. Denies LOC. (Last Reviewed 10/27/24 @ 21:11 by Jerson Weathers) Abdominal hysterectomy Cholecystectomy Arthroplasty of knee Most Recent Vital Signs Temperature 39.5 C H 10/28/24 06:32 Temperature Source Tympanic 10/28/24 06:22 Pulse 83 10/28/24 06:22 Pulse 82 10/28/24 05:50 Respiratory Rate 15 10/28/24 06:22 Respiratory Effort Normal 10/27/24 22:35 Respiratory Depth Normal 10/27/24 22:35 Respiratory Pattern Normal 10/27/24 22:35 Blood Pressure 126/56 L 10/28/24 06:22 Blood Pressure Mean 79 10/28/24 06:22 Blood Pressure Position Supine 10/27/24 22:35 Pulse Oximetry 94 10/28/24 06:22 Oxygen Delivery Method Room Air 10/28/24 06:22 Oxygen Flow Rate 0 10/28/24 06:22 Fraction of Inspired Oxygen (FIO2) 21 10/28/24 00:22 Pain Level 3 10/28/24 06:23 Allergies codeine Allergy (Intermediate, Unverified 11/25/13 13:52) NAUSEA aspirin Adverse Reaction (Mild, Unverified 11/25/13 13:52) BRUISE EASILY Active Medications Generic Name Dose Route Start Last Admin Trade Name Freq PRN Reason Stop Dose Admin Acetaminophen 325 - 650 mg 10/27/24 22:40 10/28/24 06:32 Acetaminophen 325 Mg Tab PO 650 mg Q4H PRN PRN Administration Atorvastatin Calcium 80 mg 10/27/24 22:40 10/27/24 23:59 Atorvastatin 40 Mg Tab PO 80 mg QPM JUAN Administration Heparin Sodium/Sodium Chloride 25,000 unit in 250 mls @ 0 mls/hr 10/27/24 18:45 10/28/24 07:29 IVINF 12 mls/hr INFUSION JUAN 12 mls/hr Titration Protocol Per Protocol Sodium Chloride 0 ml 10/27/24 20:00 10/27/24 23:59 Normal Saline Flush 10 Ml Syr IVP 20 ml BID JUAN Administration IV IV Catheter Type [Right Peripheral IV Antecubital] IV Catheter Gauge [Right 18 Antecubital] Diet Orders Category Date Time Status Heart Healthy Eating [DIET] Nutrition 10/28/24 Breakfast Active Diagnostics 10/28/24 10/28/24 10/28/24 Range/Units 07:39 07:18 06:48 WBC (4.4-10.8) 10^3/uL RBC (3.93-5.22) 10^6/uL Hgb (11.2-15.7) g/dL Hct (36.0-46.0) % MCV (80-95) fL MCH (27.0-33.0) pg MCHC (32.0-36.0) % RDW (11.7-14.6) % Plt Count (130-400) 10^3/uL MPV (8.0-11.0) fL Immature Gran % % Neutrophils % % Lymphocytes % % Monocytes % % Eosinophils % % Basophils % % Nucleated RBC % (0.0-0.3) % Absolute Neutrophils (1.2-6.7) 10^3/uL Absolute Lymphocytes (1.2-3.4) 10^3/uL Absolute Monocytes (0.1-0.8) 10^3/uL Absolute Eosinophils (0.0-0.7) 10^3/uL Absolute Basophils (0.0-0.2) 10^3/uL PT (9.1-11.1) sec INR (0.9-1.1) APTT Cancelled Pending (20.6-30.2) sec Sodium (136-145) mmol/L Potassium (3.5-5.1) mmol/L Chloride (98-107) mmol/L Carbon Dioxide (21.0-32.0) mmol/L Anion Gap (3-11) mmol/L BUN (7-18) mg/dL Creatinine (0.55-1.02) mg/dL Est GFR (CKD-EPI 2020) (mL/min/1.73m2) Glucose (74-106) mg/dL Calcium (8.5-10.1) mg/dL Magnesium (1.8-2.4) mg/dL Total Bilirubin (0.2-1.0) mg/dL AST (15-37) U/L ALT (14-59) U/L Alkaline Phosphatase (46-116) U/L Troponin I (<or=51) ng/L Total Protein (6.4-8.2) g/dL Albumin (3.4-5.0) g/dL Lipase (<78) U/L TSH (0.36-3.74) uIU/mL COVID-19 Source Cancelled SARS-CoV-2 (PCR) Cancelled (Negative) Influenza Type A (PCR) Cancelled (Negative) Influenza Type B (PCR) Cancelled (Negative) RSV (PCR) Cancelled (Negative) 10/28/24 10/28/24 10/27/24 Range/Units 05:45 01:00 23:56 WBC 12.12 H (4.4-10.8) 10^3/uL RBC 3.74 L (3.93-5.22) 10^6/uL Hgb 10.5 L (11.2-15.7) g/dL Hct 32.3 L (36.0-46.0) % MCV 86 (80-95) fL MCH 28.1 (27.0-33.0) pg MCHC 32.5 (32.0-36.0) % RDW 13.2 (11.7-14.6) % Plt Count 141 (130-400) 10^3/uL MPV 9.7 (8.0-11.0) fL Immature Gran % 0.7 % Neutrophils % 86.3 % Lymphocytes % 5.2 % Monocytes % 7.0 % Eosinophils % 0.2 % Basophils % 0.6 % Nucleated RBC % 0.0 (0.0-0.3) % Absolute Neutrophils 10.46 H (1.2-6.7) 10^3/uL Absolute Lymphocytes 0.63 L (1.2-3.4) 10^3/uL Absolute Monocytes 0.85 H (0.1-0.8) 10^3/uL Absolute Eosinophils 0.02 (0.0-0.7) 10^3/uL Absolute Basophils 0.07 (0.0-0.2) 10^3/uL PT (9.1-11.1) sec INR (0.9-1.1) APTT 37.2 H (20.6-30.2) sec Sodium (136-145) mmol/L Potassium (3.5-5.1) mmol/L Chloride (98-107) mmol/L Carbon Dioxide (21.0-32.0) mmol/L Anion Gap (3-11) mmol/L BUN (7-18) mg/dL Creatinine (0.55-1.02) mg/dL Est GFR (CKD-EPI 2020) (mL/min/1.73m2) Glucose (74-106) mg/dL Calcium (8.5-10.1) mg/dL Magnesium 2.5 H (1.8-2.4) mg/dL Total Bilirubin (0.2-1.0) mg/dL AST (15-37) U/L ALT (14-59) U/L Alkaline Phosphatase (46-116) U/L Troponin I 91 H* 132 H* (<or=51) ng/L Total Protein (6.4-8.2) g/dL Albumin (3.4-5.0) g/dL Lipase (<78) U/L TSH 1.61 (0.36-3.74) uIU/mL COVID-19 Source SARS-CoV-2 (PCR) (Negative) Influenza Type A (PCR) (Negative) Influenza Type B (PCR) (Negative) RSV (PCR) (Negative) 10/27/24 10/27/24 10/27/24 Range/Units 20:45 20:21 19:07 WBC (4.4-10.8) 10^3/uL RBC (3.93-5.22) 10^6/uL Hgb (11.2-15.7) g/dL Hct (36.0-46.0) % MCV (80-95) fL MCH (27.0-33.0) pg MCHC (32.0-36.0) % RDW (11.7-14.6) % Plt Count (130-400) 10^3/uL MPV (8.0-11.0) fL Immature Gran % % Neutrophils % % Lymphocytes % % Monocytes % % Eosinophils % % Basophils % % Nucleated RBC % (0.0-0.3) % Absolute Neutrophils (1.2-6.7) 10^3/uL Absolute Lymphocytes (1.2-3.4) 10^3/uL Absolute Monocytes (0.1-0.8) 10^3/uL Absolute Eosinophils (0.0-0.7) 10^3/uL Absolute Basophils (0.0-0.2) 10^3/uL PT (9.1-11.1) sec INR (0.9-1.1) APTT (20.6-30.2) sec Sodium (136-145) mmol/L Potassium (3.5-5.1) mmol/L Chloride (98-107) mmol/L Carbon Dioxide (21.0-32.0) mmol/L Anion Gap (3-11) mmol/L BUN (7-18) mg/dL Creatinine (0.55-1.02) mg/dL Est GFR (CKD-EPI 2020) (mL/min/1.73m2) Glucose (74-106) mg/dL Calcium (8.5-10.1) mg/dL Magnesium (1.8-2.4) mg/dL Total Bilirubin (0.2-1.0) mg/dL AST (15-37) U/L ALT (14-59) U/L Alkaline Phosphatase (46-116) U/L Troponin I 206 H* Cancelled 185 H* (<or=51) ng/L Total Protein (6.4-8.2) g/dL Albumin (3.4-5.0) g/dL Lipase (<78) U/L TSH (0.36-3.74) uIU/mL COVID-19 Source Nasopharynx SARS-CoV-2 (PCR) Negative (Negative) Influenza Type A (PCR) Negative (Negative) Influenza Type B (PCR) Negative (Negative) RSV (PCR) Negative (Negative) 10/27/24 Range/Units 17:51 WBC 10.72 (4.4-10.8) 10^3/uL RBC 3.88 L (3.93-5.22) 10^6/uL Hgb 10.8 L (11.2-15.7) g/dL Hct 32.7 L (36.0-46.0) % MCV 84 (80-95) fL MCH 27.8 (27.0-33.0) pg MCHC 33.0 (32.0-36.0) % RDW 13.1 (11.7-14.6) % Plt Count 148 (130-400) 10^3/uL MPV 9.4 (8.0-11.0) fL Immature Gran % 0.5 % Neutrophils % 89.4 % Lymphocytes % 4.7 % Monocytes % 4.4 % Eosinophils % 0.6 % Basophils % 0.4 % Nucleated RBC % 0.0 (0.0-0.3) % Absolute Neutrophils 9.60 H (1.2-6.7) 10^3/uL Absolute Lymphocytes 0.50 L (1.2-3.4) 10^3/uL Absolute Monocytes 0.47 (0.1-0.8) 10^3/uL Absolute Eosinophils 0.06 (0.0-0.7) 10^3/uL Absolute Basophils 0.04 (0.0-0.2) 10^3/uL PT 10.1 (9.1-11.1) sec INR 1.0 (0.9-1.1) APTT 23.0 (20.6-30.2) sec Sodium 135 L (136-145) mmol/L Potassium 3.7 (3.5-5.1) mmol/L Chloride 103 (98-107) mmol/L Carbon Dioxide 21.6 (21.0-32.0) mmol/L Anion Gap 10.4 (3-11) mmol/L BUN 27 H (7-18) mg/dL Creatinine 1.1 H (0.55-1.02) mg/dL Est GFR (CKD-EPI 2020) 52.08 (mL/min/1.73m2) Glucose 189 H (74-106) mg/dL Calcium 9.0 (8.5-10.1) mg/dL Magnesium 1.7 L (1.8-2.4) mg/dL Total Bilirubin 1.0 (0.2-1.0) mg/dL AST 43 H (15-37) U/L ALT 61 H (14-59) U/L Alkaline Phosphatase 117 H (46-116) U/L Troponin I 158 H* (<or=51) ng/L Total Protein 6.9 (6.4-8.2) g/dL Albumin 3.6 (3.4-5.0) g/dL Lipase 34 (<78) U/L TSH (0.36-3.74) uIU/mL COVID-19 Source SARS-CoV-2 (PCR) (Negative) Influenza Type A (PCR) (Negative) Influenza Type B (PCR) (Negative) RSV (PCR) (Negative) 10/28/24 07:30 Blood Culture - Pending Blood 10/28/24 07:18 Blood Culture - Pending Blood [id number]-ce-Vjln Documentation Fingerstick Glucose Start: 10/27/24 17:56 Freq: Status: Active Protocol: Activity Type Activity Date Activity User E-sign Co-sign Detail Recorded Client Recorded Date Recorded By Document 10/27/24 18:38 NF [id number] 10/27/24 18:39 NF Intake and Output - 24 Hour Total 10/27/24 17:36 thru 10/28/24 07:29 Intake Total 835.767 Output Total 400 Balance 435.767 Weight 92.8 kg Intake: IV 185.767 Oral 650 Output: Urine 400 Other: Urine Color Light Abbey Urine Appearance Clear Urine Odor Foul Comment Pt previously had hysterectomy Falls Risk Assessment History of Falls Previous History 10/27/24 22:35 Contributing Factors Impairments 10/27/24 22:35 Ambulatory Aids Independent 10/27/24 22:35 Tubes/Lines None 10/27/24 18:01 Gait Evaluation No gait disturbance 10/27/24 18:01 Cognition No cognitive impairment 10/27/24 18:01 Fall Total Score 18 10/27/24 22:35 Level of Risk Standard/Low Risk 10/27/24 22:35 Problems (Last Reviewed 10/27/24 @ 21:11 by Jerson Weathers) CARLY (obstructive sleep apnea) (Chronic) PMR (polymyalgia rheumatica) (Chronic) Fever (Acute) Hypomagnesemia (Acute) Concussion (Acute) Depression (Chronic) Hyperactivity of bladder (Chronic) HTN (hypertension) (Chronic) NSTEMI, initial episode of care (Acute) v v v v v v v v v Sending and/or Receiving Nurses: Please use comment section below to note any information pertinent to the patient hand-off not included above. Information / Comments: A/O x4, lungs clear, irrigular heart rhythm, HR 78 bpm, temp. 38.5, bp 91/51, O2 98% RA. Patient is on Heparin drip @ 12ml/hr (1200 unit), PTT 37.2 recheck by 8 am. 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 Patient is transferring from ICU to medsur unit. Report received from: Zarina Qureshi RN
[2024-10-28 07:56] LABS: PTT Activated 45.2 sec (20.6-30.2)
[2024-10-28] MEDS: hydroCHLOROthiazide 12.5 MG TAB PO (07:56)
[2024-10-28] MEDS: Aspirin 81 MG CHEW PO (07:56)
[2024-10-28] MEDS: Multivitamin TAB 1 TAB PO (07:57)
[2024-10-28] MEDS: Tolterodine 2 MG CAPCR 4 MG PO (07:57)
[2024-10-28] MEDS: Hydroxychloroquine 200 MG TAB PO (07:57)
[2024-10-28] MEDS: Normal Saline Flush 10 ML SYR IVP (07:57)
[2024-10-28] MEDS: Escitalopram 10 MG TAB PO (07:57)
[2024-10-28] MEDS: Atenolol 25 MG TAB PO (07:57)
--- NOTE | 2024-10-28 08:00 | RT.EKG_ITS ---
APPROVED REPORT Exam: Resting ECG Reason for Exam: elevated ST Patient Location: I HR:91 bpm ECG Measurements Heart Rate 91 AXIS SD 158 P 43 QRSd 100 QRS 0 QT 387 T 29 QTc 477 Conclusion Sinus rhythm...normal P axis, V-rate 50- 99 , early transition...QRS area>0 in V2 Baseline wander in lead(s) V2,V3 Otherwise normal ECG
[2024-10-28] MEDS: DOXYCYCLINE 100 MG in Normal Saline 100 ML IVPB (08:18)
--- NOTE | 2024-10-28 08:37 | PDOC.CMIN ---
Date of service: 10/28/24 Time of Service: 08:37 Care Management Initial Assmt Initial Assessment Reason for Hospitalization: NSTEMI Functional Status/Living Situation Patient Presentation: Roxanna presented to the ED yesterday evening reporting not feeling well. She fell on , hitting her head and tumbling down a hill. She has felt unsteady since. 2 days ago she had some panicky breathing with nausea/vomiting x 1, and profuse sweating. This resolved spontaneously. She had another episode yesterday, with more vomiting and sweating and more panicky breathing. Val has been accepted at [facility] [place] for transfer. Val was sitting up in the bed, her , Matthias was visiting, when CM met with them this afternoon. Both were very pleasant. Val has a left black eye and a good sized bruise on her left cheek from the fall. She denied having a headache, or any pain at all. She stated that she is very tired, and has been sleeping a lot today. She is very anxious to get to [facility] [place] and get this over with. Val is independent at baseline. Town of Residence: [place] Resides with: Spouse (Shaquille) Significant Other/Family: Out of area (3 children. Kids are in [place], [place] and [place]. 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.) Instrumental Activities of Daily Living (ADLs): Independent Activities/Hobbies/SocialSupport: family, friends, [facility] Medications Medication Management: No Issues/Barriers identified Advance Directives Advance Directives: Do you have an Advance Directive: N 11/21/12 11:43 AD On File at [facility]: N 10/08/12 11:18 Date Asked 10/27/24 10/27/24 17:47 AD Date Reviewed COLST On File at [facility] COLST Date Scanned Code Status Resuscitation Status Full Code Insurance Coverage/Financial Issues Insurance: [employer] Medicare Replacement Care Team Visit Care Team Role Provider Type Nick Bauer MD [facility] STAFF PHYSICIAN Unknown Unknown Primary Care Provider STAFF PHYSICIAN Sandie Walters Emergency Provider NURSE PRACTITIONER Jerson Weathers Admit Provider NON-[facility] STAFF PHYSICIAN Attending Provider Discharge Potential Discharge Needs: Other ([facility] [place] transfer) Anticipated Barriers to Discharge: Bed availability Patient/Family Education Needs: Review discharge instructions, discuss Ask Me Three Transportation: EMS (as coordinated by bunk house worker order department supervisor) Plan: Roxanna will be transferred to [facility] [place] once a bed is available. Her transportation will be via EMS as coordinated by the nursing order department supervisor. CM will continue to follow. Social Determinants of Health Screening Social Determinants of health last assessed in clinic: 10/28/24 Will the Patient Participate in the Screening?: Yes Do you worry about having a steady place to live?: no Problems where you live: no known problems In the past 12 months, have you had to go without electric, gas, oil or water in your home?: no 1. Within the past 12 months, we worried whether our food would run out before we got money to buy more.: Never true 2. Within the past 12 months, the food we bought just didn't last and we didn't have money to get more.: Never true Has lack of transportation kept you from medical appointments or from doing things needed for daily living?: no Has anyone in your life made you feel unsafe or unsupported?: no How hard is it for you to pay for the very basics like food, housing, medical care, and heating? Would you say it is:: Not hard at all Do you want help finding or keeping work or a job?: I do not need or want help If for any reason you need help with day-to-day activities such as bathing, preparing meals, shopping, managing finances, etc., do you get the help you need?: I get all the help I need How often do you feel lonely or isolated from those around you?: Never Do you speak a language other than Sinhala at home?: No Does the patient want assistance with any of the above?: No PFSH All Active Problems (Updated 10/28/24 @ 07:13 by Jerson Weathers) CARLY (obstructive sleep apnea) (Chronic) PMR (polymyalgia rheumatica) (Chronic) Fever (Acute) Hypomagnesemia (Acute) Concussion (Acute) Depression (Chronic) Hyperactivity of bladder (Chronic) HTN (hypertension) (Chronic) NSTEMI, initial episode of care (Acute) Surgical History Abdominal hysterectomy Cholecystectomy Arthroplasty of knee Family History Mother Personal history of malignant neoplasm Father Essential hypertension Sister No problems noted. Brother Essential hypertension Grandfather No problems noted. Grandfather No problems noted. Grandmother Personal history of malignant neoplasm Grandmother No problems noted. Social History Smoking/Tobacco Use Status: Never Smoking risk assessment performed?: Yes Substance use type: does not use Housing: house Readmission Within the Past 30 Days Yes or No: No
[2024-10-28 09:44] LABS: Lab Add On Test DONE
[2024-10-28] MEDS: cefTRIAXone 1 GM/50 ML BAG IVPB (10:09)
[2024-10-28 10:27] LABS: Hemoglobin A1C 6.2 % (<5.7)
[2024-10-28] MEDS: Heparin in 0.45% NaCl 25,000 UNIT/250 ML BAG 14 UNIT IVINF (11:59)
[2024-10-28 13:38] LABS: PTT Activated 55.7 sec (20.6-30.2)
[2024-10-28 14:53] LABS: Bilirubin Negative (Negative); Blood Moderate (Negative); Clarity Cloudy (Clear); Glucose Negative (Negative); Ketones Negative (Negative); Leukocyte Esterase Moderate (Negative); Nitrite Positive (Negative); pH 5.5 (5-8)
[2024-10-28 15:00] LABS: Bacteria Many HPF (Negative); C & S Indicated? Yes; Casts 0-2 Hyaline LPF (Negative); Crystals Negative HPF (Negative); Epithelial Cells Few HPF (Negative); Mucus Negative (Negative); Other Cells Few Renal (Negative); WBC 20-50 HPF (0-5)
--- NOTE | 2024-10-28 15:26 | NUR.NOTE ---
Nursing Note: RN spoke with Violet [place] [facility] [place] confirmed [place] available [place] [facility] [place], [place], Nurse to Nurse report to be given to [phone] KARLA KIMBALL
--- NOTE | 2024-10-28 15:32 | W.PM.DS.N ---
Date of service: 10/28/24 Time of Service: 15:32 DS: Diagnosis Discharge Diagnosis (1) NSTEMI, initial episode of care: Status: Acute (2) Concussion: Status: Acute (3) Fever: Status: Acute (4) Hypomagnesemia: Status: Acute (5) PMR (polymyalgia rheumatica): Status: Chronic (6) HTN (hypertension): Status: Chronic (7) Hyperactivity of bladder: Status: Chronic (8) Depression: Status: Chronic (9) CARLY (obstructive sleep apnea): Status: Chronic Discharge Plan Disposition Patient Disposition: Transfer-Acute Inpatient Care Specific Acute Inpt Facility: [facility] Condition: Fair Discharge Details Reason For Visit: NSTEMI, HTN Admit Date/Time: 10/27/24 21:33 Admit Provider: Jerson Weathers Attending Provider: Jerson Weathers Primary Care Provider: Unknown,Unknown Hospital Course Hospital Course: 74-year-old female with HTN, h/o PMR, CARLY who had a fall 3 days prior to admission with some stuttering symptoms of chills and episodes of headache with nausea and vomiting. The day of presentation she had increased shortness of breath with exertion working around the house. She did have a headache 2 days prior to admission after her fall and some nausea and vomiting episodes intermittently with her headache. In the ED with imaging of her head which was negative for any acute bleed. EKG was reassuring but she had a positive troponin which trended up from 158 to 206 before coming back down to 91. She was given a full dose aspirin and placed on heparin infusion and [facility] cardiology was consulted with acceptance pending bed for transfer. She had fever up to 39.7 on 5/12 am. Mild AST/ALT elevation and low normal platelets were noted. She had been working outside, so tick panel was sent and she was started on doxycycline for possible anaplasmosis. Chest x-ray showed a possible LLL infiltrate and u/a was also positive. Ceftriaxone was added to her antibiotics. She did not have significant focal symptoms other than shortness of breath. Her magnesium was mildly low and she received 2g IV. Pending laboratory exams: Tick and Lyme panel (sent to [facility] lab) Home Meds and New Rx's Prescriptions: No Action hydroxychloroquine [Plaquenil] 200 MG tablet 1 tab PO BID Qty: 180 omega-3 fatty acids-fish oil 1 EACH capsule 1 cap PO DAILY calcium carb, citrate-vit D3 1 EACH tablet extended release 1 tab PO DAILY Rx Instructions: 1200 W/ D3 1000 CENTRUM TABLET 1 EACH tablet 1 tab PO DAILY escitalopram oxalate [Lexapro] 10 MG tablet 1 tab PO DAILY Qty: 90 hydrochlorothiazide 12.5 MG tablet 1 tab PO DAILY Qty: 90 latanoprost 0.005 % drops 1 drp ophthalmic (eye) DAILY Patient Comments: INSTILL 1 DROP INTO BOTH EYES EVERY EVENING timolol maleate 0.5 % drops 1 drp ophthalmic (eye) DAILY Patient Comments: INSTILL 1 DROP INTO THE RIGHT EYE EVERY MORNING Discharge Instructions Activity:: Activity as Tolerated Equipment/Supplies:: No Equipment Needed Diet:: As Tolerated Discharge Orders Discharge Orders: Discharge Order (Routine); Ordered 10/28/24 Ordered By: Nick Bauer DS: Summary Time Spent with Patient providing and/or coordinating discharge services: Greater than 30 minutes Status at Discharge Functional status at discharge: independent ambulation Overall status at discharge: patient is not back to baseline Mental Status: mental status grossly normal Speech and Movement: speech and movement normal Mood: congruent mood Affect: normal affect Quality:SDOH Health Related Social Needs: No Data to Display Exam Narrative Exam Narrative: General: Alert and oriented x 3 and in no acute distress. Lungs: Slight coarse crackles left hemithorax compared to right with bronchovesicular breath sounds diffusely, no wheeze or rhonchi. Heart: Regular rate and rhythm with no murmurs gallops appreciated. Abdomen: Soft and nontender to palpation with no palpable hepatosplenomegaly. Bowel sounds positive all quadrants. Extremities: Without clubbing, cyanosis or pitting edema with patient. Warm, good capillary refill. Skin: Normal color, warm and dry. Ecchymotic areas over extensor surface of left knee and lower face with left black eye and linear markings over left face. No rash. Neuro: Cranial nerves II through XII gross intact, no focalized motor deficits. No tremor. Psych: Normal affect and mood. No abnormal thought processes. Remote and recent memory intact. Psych Mental Status: mental status grossly normal Speech and Movement: speech and movement normal Mood: congruent mood Affect: normal affect DS: Data Vitals/I&O Vitals and I&O: Vital Signs Temperature 36.8 C 10/28/24 11:15 Temperature Source Temporal Artery Scan 05/12/25 11:15 Pulse 69 10/28/24 11:15 Pulse 82 10/28/24 05:50 Respiratory Rate 16 10/28/24 11:15 Respiratory Effort Normal 10/27/24 22:35 Respiratory Depth Normal 10/27/24 22:35 Respiratory Pattern Normal 10/27/24 22:35 Blood Pressure 100/57 L 10/28/24 11:15 Blood Pressure Mean 71 10/28/24 11:15 Blood Pressure Position Supine 10/27/24 22:35 Pulse Oximetry 92 10/28/24 11:15 Oxygen Delivery Method Room Air 10/28/24 11:15 Oxygen Flow Rate 0 10/28/24 11:15 Fraction of Inspired Oxygen (FIO2) 21 10/28/24 00:22 Pain Level 0 10/28/24 10:09 Intake & Output 10/27/24 10/28/24 10/28/24 23:59 11:59 23:59 Intake Total 1100.000 / 1124.500 24.5 / 1124.500 Output Total 300 / 300 100 / 300 200 / 300 Balance -300 / -300 1000.000 / 824.500 -175.5 / 824.500 Weight 92.8 kg Intake: IV 450.000 / 474.500 24.5 / 474.500 Oral 650 / 650 Output: Urine 300 / 300 100 / 300 200 / 300 Other: Urine Color Light Abbey Light Abbey Dark Abbey Urine Appearance Clear Clear Clear Urine Odor Foul Foul Strong Comment Pt previously had hysterectomy Data Completed and Pending Labs on day of discharge: Labs from last 24 hours 10/28/24 19:00: APTT Pending 10/28/24 14:22: Urine Color Yellow, Urine Clarity Cloudy, Urine pH 5.5, Ur Specific [place] 1.020, Urine Protein 100 H, Urine Ketones Negative, Urine Blood Moderate H, Urine Nitrite Positive H, Urine Bilirubin Negative, Urine Urobilinogen 1.0 H, Ur Leukocyte Esterase Moderate H, Urine RBC 10-20 H, Urine WBC 20-50 H, Ur Epithelial Cells Few, Urine Crystals Negative, Urine Bacteria Many, Urine Casts 0-2 Hyaline, Urine Mucus Negative, Urine Other Few Renal, Ur Culture Indicated? Yes, Urine Glucose Negative 10/28/24 13:03: APTT 55.7 H 10/28/24 09:41: Add-On Test Request DONE 10/28/24 07:39: APTT Cancelled 10/28/24 07:18: APTT 45.2 H 10/28/24 06:48: COVID-19 Source Cancelled, SARS-CoV-2 (PCR) Cancelled, Influenza Type A (PCR) Cancelled, Influenza Type B (PCR) Cancelled, RSV (PCR) Cancelled 10/28/24 05:45: WBC 12.12 H, RBC 3.74 L, Hgb 10.5 L, Hct 32.3 L, MCV 86, MCH 28.1, MCHC 32.5, RDW 13.2, Plt Count 141, MPV 9.7, Immature Gran % 0.7, Neutrophils % 86.3, Lymphocytes % 5.2, Monocytes % 7.0, Eosinophils % 0.2, Basophils % 0.6, Nucleated RBC % 0.0, Absolute Neutrophils 10.46 H, Absolute Lymphocytes 0.63 L, Absolute Monocytes 0.85 H, Absolute Eosinophils 0.02, Absolute Basophils 0.07, Magnesium 2.5 H, Troponin I 91 H*, B. divergens/MO-1 PCR Pending, Babesia duncani (PCR) Pending, Babesia microti DNA PCR Pending, Lyme Disease Antibody Pending, E.chaffeensis DNA (PCR) Pending, E.ewingii/canis DNA PCR Pending, E.muris eauclairensis (PCR) Pending, A. phagocytophilum (PCR) Pending, Blood B. miyamotoi (PCR) Pending 10/28/24 01:00: APTT 37.2 H 10/27/24 23:56: Troponin I 132 H*, TSH 1.61 10/27/24 20:45: Troponin I 206 H*, COVID-19 Source Nasopharynx, SARS-CoV-2 (PCR) Negative, Influenza Type A (PCR) Negative, Influenza Type B (PCR) Negative, RSV (PCR) Negative 10/27/24 20:21: Troponin I Cancelled 10/27/24 19:07: Troponin I 185 H* 10/27/24 17:51: WBC 10.72, RBC 3.88 L, Hgb 10.8 L, Hct 32.7 L, MCV 84, MCH 27.8, MCHC 33.0, RDW 13.1, Plt Count 148, MPV 9.4, Immature Gran % 0.5, Neutrophils % 89.4, Lymphocytes % 4.7, Monocytes % 4.4, Eosinophils % 0.6, Basophils % 0.4, Nucleated RBC % 0.0, Absolute Neutrophils 9.60 H, Absolute Lymphocytes 0.50 L, Absolute Monocytes 0.47, Absolute Eosinophils 0.06, Absolute Basophils 0.04, PT 10.1, INR 1.0, APTT 23.0, Sodium 135 L, Potassium 3.7, Chloride 103, Carbon Dioxide 21.6, Anion Gap 10.4, BUN 27 H, Creatinine 1.1 H, Est GFR (CKD-EPI 2020) 52.08, Glucose 189 H, Hemoglobin A1c 6.2 H, Calcium 9.0, Magnesium 1.7 L, Total Bilirubin 1.0, AST 43 H, ALT 61 H, Alkaline Phosphatase 117 H, Troponin I 158 H*, Total Protein 6.9, Albumin 3.6, Lipase 34 10/28/24 14:22 Urine - Reflex from Ua Urine Culture - Pending 10/28/24 07:30 Blood Blood Culture - Pending 10/28/24 07:18 Blood Blood Culture - Pending Preliminary micro results at discharge 10/28/24 14:22 Urine - Reflex from Ua Urine Culture - Pending 10/28/24 07:30 Blood Blood Culture - Pending 10/28/24 07:18 Blood Blood Culture - Pending [facility] All Active Problems (Updated 10/28/24 @ 07:13 by Jerson Weathers) CARLY (obstructive sleep apnea) (Chronic) PMR (polymyalgia rheumatica) (Chronic) Fever (Acute) Hypomagnesemia (Acute) Concussion (Acute) Depression (Chronic) Hyperactivity of bladder (Chronic) HTN (hypertension) (Chronic) NSTEMI, initial episode of care (Acute) Surgical History Abdominal hysterectomy Cholecystectomy Arthroplasty of knee Family History Mother Personal history of malignant neoplasm Father Essential hypertension Sister No problems noted. Brother Essential hypertension Grandfather No problems noted. Grandfather No problems noted. Grandmother Personal history of malignant neoplasm Grandmother No problems noted. Social History Smoking/Tobacco Use Status: Never Smoking risk assessment performed?: Yes Substance use type: does not use Housing: house Time Spent with Patient Time Spent with Patient: 45-69 minutes Time was spent: preparing to see the patient(eg.review tests), obtaining and/or reviewing separately otained hiistory, ordering medications,tests, procedures, referring, communicating with other health geriatric care manager, indepentently interpreting results, counseling the patient and care coordination
--- NOTE | 2024-10-28 15:54 | NUR.NOTE ---
Nursing Note: Fiorella Hawley at [facility] given report at [id number]
[2024-10-29 08:04] LABS: Lyme Ab w Rflx to Lyme Confirm Negative (Negative)
[2024-10-31 09:38] LABS: Anaplasma phagocytophilum Negative (Negative); B. miyamotoi PCR Negative (Negative); Babesia divergens/MO-1 Negative (Negative); Babesia duncani Negative (Negative); Babesia microti Negative (Negative); Ehrlichia chaffeensis Negative (Negative); Ehrlichia ewingii/canis Negative (Negative); Ehrlichia muris eauclairensis Negative (Negative)
== END 2024-10-28 16:47 | disposition short-term general hospital (02) | DRG 282 ==
LOC: ER 21:32 → ICU 22:24 → MS 10-28 06:31
PROVIDERS: Admitting Provider Family Medicine; Emergency Provider Nurse Practitioner Family; Responsible Provider Family Medicine; Visit Provider Family Medicine
DX: I21.4 Non-ST elevation (NSTEMI) myocardial infarction (principal); S06.0X0A Concussion without loss of consciousness, initial encounter; M35.3 Polymyalgia rheumatica; I10 Essential (primary) hypertension; N31.8 Other neuromuscular dysfunction of bladder; G47.33 Obstructive sleep apnea (adult) (pediatric); F32.89 Other specified depressive episodes; R50.9 Fever, unspecified; E83.42 Hypomagnesemia; W17.81XA Fall down embankment (hill), initial encounter; E78.5 Hyperlipidemia, unspecified; R73.03 Prediabetes; S05.12XA Contusion of eyeball and orbital tissues, left eye, initial encounter; Z79.899 Other long term (current) drug therapy; R79.89 Other specified abnormal findings of blood chemistry; R51.9 Headache, unspecified; R11.2 Nausea with vomiting, unspecified; S80.02XA Contusion of left knee, initial encounter; R94.5 Abnormal results of liver function studies
CPT/HCPCS: 00123; 36415; 36416; 80053; 82962; 83690; 85027; 87040; 87077; 87637; 87798; 93005; 96365; 96366; 96375; 99291; 70450; 71045; 71046; 72125; 81003; 81015; 83036; 83735; 84443; 84484; 85025; 85610; 85730; 86618; 87086; 87186; 93010; 94660; 94760; 99223; 99239; J0696; J1644; J2270; J2405; J3475